=== PATIENT | female | born 1960 | race Caucasian/White ===

== ENCOUNTER → 2020-06-01 | Outpatient (CLI) | payer BC ==
[~2020-06-01] MED LIST: FLEXERIL5 MG PO; HYDROCODONE BIT1 T11 PO; MOTRIN800 MG PO; SIMVASTATIN5 MG PO; SYNTHROID0.025 MG PO
== END | disposition home or self-care (01) ==
LOC: CT 09:00
PROVIDERS: ATTEND Internal Medicine
DX: J43.9 Emphysema, unspecified (principal); R91.8 Other nonspecific abnormal finding of lung field

== ENCOUNTER → 2021-03-22 | Outpatient (CLI) | payer BC ==
[~2021-03-22] MED LIST changes: +METHOTREXATE2.5 MG PO; +PREMARIN0.45 MG PO; +SIMVASTATIN40 MG PO; -SIMVASTATIN5 MG PO; -SYNTHROID0.025 MG PO; +Synthroid,Levo75 MCG PO
== END | disposition home or self-care (01) ==
LOC: CARD 00:10
PROVIDERS: ATTEND Internal Medicine
DX: R06.02 Shortness of breath (principal)

== ENCOUNTER → 2021-06-07 | Outpatient (CLI) | payer BC | END | disposition home or self-care (01) | LOC: COVID19 16:15 | PROVIDERS: ATTEND Podiatrist Foot & Ankle Surgery | DX: U07.1 COVID-19 (principal) ==

== ENCOUNTER → 2022-10-19 | Outpatient (CLI) | payer BC | END | disposition home or self-care (01) | LOC: RAD 01:10 | PROVIDERS: ATTEND Internal Medicine | DX: M85.9 Disorder of bone density and structure, unspecified (principal); Z78.0 Asymptomatic menopausal state ==

== ENCOUNTER → 2022-10-22 | Outpatient (CLI) | payer BC | END | disposition home or self-care (01) | LOC: RAD 10-19 08:00 → CT 01:08 → RAD 09:00 → CT 10:00 | PROVIDERS: ATTEND Internal Medicine | DX: K57.32 Diverticulitis of large intestine without perforation or abscess without bleeding (principal); K92.1 Melena; K76.0 Fatty (change of) liver, not elsewhere classified; K57.10 Diverticulosis of small intestine without perforation or abscess without bleeding; M47.816 Spondylosis without myelopathy or radiculopathy, lumbar region ==

== ENCOUNTER → 2024-04-09 | Outpatient (CLI) | payer MEDICARE ==
[2024-04-09 10:01] LABS: BASO % 0.3 % (0.0-1.0); EOS # 0.1 10*3/uL (0.0-0.4); EOS % 1.4 % (1.0-4.0); HEMATOCRIT 44.1 % (37.0-47.0); LYMPH # 1.9 10*3/uL (1.3-4.4); LYMPH % 21.3 % (27.0-41.0); MEAN CELL VOLUME 93.6 fl (81.0-99.0); MEAN CORPUSCULAR HGB 30.1 pg (27.0-31.0); MEAN CORPUSCULAR HGB CONC 32.2 g/dl (33.0-37.0); MEAN PLATELET VOLUME 9.1 fl (9.6-12.3); MONO # 0.6 10*3/uL (0.1-1.0); MONO % 7.1 % (3.0-9.0); NEUT # 6.1 10*3/uL (2.3-7.9); NEUT % 69.2 % (47.0-73.0); PLATELET COUNT AUTOMATED 365 10*3/uL (130-400); RED BLOOD COUNT 4.71 10*6/uL (4.10-5.10); RED CELL DISTRI WIDTH 14.3 % (0-14.5); WHITE BLOOD COUNT 8.8 10*3/uL (4.8-10.8)
[2024-04-09 10:27] LABS: ALKALINE PHOSPHATASE 98 U/L (46-116); BUN 13 mg/dl (9-23); CHLORIDE 102 mmol/L (98-107); CHOLESTEROL 181 mg/dL (<200); FREE T4 1.69 ng/dl (0.89-1.76); LDL CHOLESTEROL 114 mg/dL (9-159); POTASSIUM 4.6 mmol/L (3.4-5.1); SGPT/ALT 12 U/L (5-49); TOTAL PROTEIN 7.7 gm/dL (6.0-8.0); TRIGLYCERIDES 157 mg/dl (<150)
[2024-04-09 10:57] LABS: VITAMIN D, 25-HYDROXY 54.4 ng/mL (30-100)
== END | disposition home or self-care (01) ==
LOC: LAB 09:39
PROVIDERS: ATTEND Internal Medicine
DX: R53.83 Other fatigue (principal); E78.2 Mixed hyperlipidemia; E03.9 Hypothyroidism, unspecified; E53.9 Vitamin B deficiency, unspecified; E55.9 Vitamin D deficiency, unspecified

== ENCOUNTER 2024-10-08 05:19 | Emergency (ER) | payer MEDICARE ==
[~2024-10-08] VITALS: Ht 154.9 cm; Wt 53.1 kg
[2024-10-08 05:25] VITALS: BP 149/79
[2024-10-08] MEDS ORDERED: METHOTREXATE S2.5 M1 PO (05:35)
[2024-10-08 06:03] LABS: BASO % 0.3 % (0.0-1.0); EOS # 0.2 10*3/uL (0.0-0.4); EOS % 2.4 % (1.0-4.0); HEMATOCRIT 41.5 % (37.0-47.0); MEAN CELL VOLUME 93.7 fl (81.0-99.0); MEAN CORPUSCULAR HGB 30.5 pg (27.0-31.0); MEAN CORPUSCULAR HGB CONC 32.5 g/dl (33.0-37.0); MEAN PLATELET VOLUME 9.4 fl (9.6-12.3); MONO # 0.6 10*3/uL (0.1-1.0); MONO % 6.3 % (3.0-9.0); NEUT # 6.1 10*3/uL (2.3-7.9); NEUT % 70.1 % (47.0-73.0); PLATELET COUNT AUTOMATED 387 10*3/uL (130-400); RED BLOOD COUNT 4.43 10*6/uL (4.10-5.10); RED CELL DISTRI WIDTH 13.8 % (0-14.5); WHITE BLOOD COUNT 8.8 10*3/uL (4.8-10.8)
[2024-10-08] MEDS ORDERED: HYDROmorphone Hydrochloride 1 MG/ML SYR IV ONE (06:15)
[2024-10-08] MEDS ORDERED: Ondansetron Hydrochloride 4 MG/2 ML VIAL IV ONE (06:15)
[2024-10-08 06:19] LABS: ALKALINE PHOSPHATASE 99 U/L (46-116); BUN 19 mg/dl (9-23); CHLORIDE 105 mmol/L (98-107); LIPASE 34 U/L (12-53); POTASSIUM 3.9 mmol/L (3.4-5.1); SGPT/ALT 13 U/L (5-49)
== END 2024-10-08 07:02 | disposition home or self-care (01) ==
LOC: ED 05:19
PROVIDERS: Internal Medicine
DX: K80.20 Calculus of gallbladder without cholecystitis without obstruction (principal); K82.8 Other specified diseases of gallbladder; R11.2 Nausea with vomiting, unspecified; Z79.899 Other long term (current) drug therapy; Z90.711 Acquired absence of uterus with remaining cervical stump